=== PATIENT | female | born 1960 ===

== ENCOUNTER 2018-12-06 22:45 | Inpatient (IN) | payer MEDICAID, OTHER ==
[2018-12-06] MEDS ORDERED: SODIUM CHLORIDE 0.9% 1000 ML SOL IV SCH (23:00)
[2018-12-06 23:09] LABS: BASOPHILS % (AUTO) 1 % (0-3); EOSINOPHILS % (AUTO) 2 % (0-9); HEMATOCRIT 47 % (35-47); LYMPHOCYTES % (AUTO) 25.4 % (10-50); MEAN CORPUSCULAR HGB CONC 32.1 gm/dl (32.0-36.0); MEAN CORPUSCULAR VOLUME 87 fL (81-99); MONOCYTES % (AUTO) 6.5 % (0-12)
[2018-12-06 23:17] LABS: APPEARANCE,URINE Clear; BILIRUBIN,URINE NEGATIVE (NEGATIVE); COLOR,URINE Yellow; GLUCOSE, URINE (UA) NEGATIVE (NEGATIVE); KETONES,URINE NEGATIVE (NEGATIVE); LEUKOCYTE ESTERASE ,URINE TRACE (NEGATIVE); NITRATE,URINE NEGATIVE (NEGATIVE); OCCULT BLOOD,URINE 1+ (NEG-TRACE); PH,URINE 5.5; UROBILINOGEN,URINE 0.2 (0.2-1.0 EU)
[2018-12-06 23:30] LABS: AMPHETAMINES NEGATIVE (NEGATIVE); BACTERIA 1+ (< 1+); BARBITUATES NEGATIVE (NEGATIVE); BENZODIAZEPINES NEGATIVE (NEGATIVE); CANNABINOL(THC) NEGATIVE (NEGATIVE); COCAINE(COC) NEGATIVE (NEGATIVE); CRYSTALS NEGATIVE (0-3 AVE/HPF); EPITHELIAL CELLS 0-3 (SQUAMOUS); METHADONE NEGATIVE (NEGATIVE); METHAMPHETAMINES NEGATIVE (NEGATIVE); OPIATES(OPI) NEGATIVE (NEGATIVE); OXYCODONE(OXY) NEGATIVE (NEGATIVE); PROPOXYPHENE(PPX) NEGATIVE (NEGATIVE); RBC,URINE 0-2 (0-3AV/HPF); TRICYCLIC ANTIDEPRESSANTS POSITIVE (NEGATIVE); WBC,URINE 0-2 (0-5AV/HPF)
[2018-12-06 23:37] LABS: ALBUMIN 3.8 gm/dl (3.4-5.0); ALKALINE PHOSPHATASE 124 IU/L (46-116); ALT 45 IU/L (14-63); AST 47 IU/L (15-37); BILIRUBIN,TOTAL 0.7 mg/dl (0.2-1.0); BLOOD UREA NITROGEN 4 mg/dl (7-18); CALCIUM 8.7 mg/dl (8.5-10.1); CARBON DIOXIDE 25.1 mEq/L (21-32); CHLORIDE 107 mMol/L (98-107); GLUCOSE 130 mg/dl (74-106); THYROID STIMULATING HORMONE 0.932 uIU/ml (0.358-3.740); TOTAL PROTEIN 8.5 gm/dl (6.4-8.2)
[2018-12-06 23:38] LABS: ACETAMINOPHEN < 2 ug/ml (10-30); ALCOHOL 0.136 gm/dl (0.000-0.08)
[2018-12-07] MEDS ORDERED: POTASSIUM CHLORIDE 10 MEQ TER PO ONE
[2018-12-07] MEDS ORDERED: POTASSIUM CHLORIDE 2 MEQ/ML 40 MEQ, LIDOCAINE HCL 1% MDV 2 ML in SODIUM CHLORIDE 0.9% 5... IV ONE (00:38)
[2018-12-07] MEDS ORDERED: LIDOCAINE HCL 1% MPF 30 SOL ONE (00:56)
[2018-12-07] MEDS ORDERED: POTASSIUM CHLORIDE 2 MEQ/ML SOL IV ONE (00:56)
[2018-12-07] MEDS ORDERED: LORAZEPAM 2 MG/ML 10ML MDV 2 MG/ML VIAL IV PRN ×2 (01:33→02:48)
[2018-12-07] MEDS ORDERED: LORAZEPAM 2 MG/ML SOL ONE (01:43)
[2018-12-07 06:09] LABS: ALCOHOL 0.005 gm/dl (0.000-0.08)
[2018-12-07] MEDS: LOSARTAN POTASSIUM 50 MG TAB PO SCH (14:05)
[2018-12-07] MEDS: METOPROLOL SUCCINATE 50 MG ER TAB PO SCH (14:05)
[2018-12-07] MEDS ORDERED: LOSARTAN POTASSIUM 50 MG TAB ONE (14:07)
[2018-12-07] MEDS ORDERED: METOPROLOL SUCCINATE 50 MG ER TAB ONE (14:07)
[2018-12-08] MEDS: SODIUM CHLORIDE 0.9% FLUSH 10 ML SOL IV SCH ×2 (00:28→06:20)
[2018-12-08 02:24] VITALS: O2SAT 96
[2018-12-08] MEDS ORDERED: LORAZEPAM 2 MG/ML SOL IV PRN (09:00)
[2018-12-08] MEDS: LOSARTAN POTASSIUM 50 MG TAB PO SCH (10:03)
[2018-12-08] MEDS: METOPROLOL SUCCINATE 50 MG ER TAB PO SCH (10:03)
[2018-12-08 14:09] VITALS: BP 155/97; PULSE 87; RESP 16; TEMP 98.2
== END 2018-12-08 15:00 | disposition home or self-care (01) | DRG 999 ==
LOC: ED 22:45 → ACUTE CARE 12-07 20:36
PROVIDERS: ADMIT Internal Medicine; ATTEND Internal Medicine
DX: Y90.6 Blood alcohol level of 120-199 mg/100 ml (principal); R41.82 Altered mental status, unspecified; F10.129 Alcohol abuse with intoxication, unspecified; R45.851 Suicidal ideations; Z59.0 Homelessness
CPT/HCPCS: 36415; 70450; 80053; 80305; 80307; 81001; 83735; 84132; 84443; 85025; 87088; 93005; 96365; 96366; 96374; 99221; 99285; J2060; J3480; A9270-GY; J2001